=== PATIENT | male | born 1955 | race Hispanic/Latino ===

== ENCOUNTER → 2025-06-12 | Outpatient (CLI) | payer OTHER ==
[~2025-06-12] MED LIST: ALLO100T PO; CYCL-309 PO; GABA-1405 PO; HYDR-4060 PO; IBUP-2077 PO; LIDOCAINE PF 100MG/5ML (2%) SYRINGE 5ML ONE; MELA10TA37 PO
--- NOTE | 2025-06-12 13:40 | NUR ---
MBSS COMPLETED: (OUTPATIENT). No penetration/aspiration. RECOMMENDATIONS: Regular textured solids, thin liquids, whole pills. GI consult due to patient complaints of midesophageal pressure when eating solids. COMPENSATORY STRATEGIES: 1. Upright during PO intake 2. Alternate between solids/liquids NOTES: Patient complained of globus sensation and feeling like he is choking with solids. Patient states it occurs "only sometimes." He reports a history of diabetes and high blood pressure. DIAGNOSTIC FINDINGS: Patient presented with good oral seal over spoon and cup across all consistencies, timely A-P transit time, decreased base of tongue retraction and decreased pressure generation within the pharynx. Characteristics evident by vallecular and pyriform residue. Multiple swallows and alternation of bites and sips helped reduce symptom. RETAIL COORDINATOR reviewed results and recommendations with the patient and patient's daughter. Education on risks and consequences of aspiration. ST is not indicated at this time as patient appears to present within functional limits for swallowing abilities. All questions answered.
--- NOTE | 2025-06-17 20:15 | HMCIMG ---
Fluoroscopy is utilized for the procedure. The total fluoroscopy time is 003.9 min. The total dose area product is 351.98 mGy. The interpreting radiologist was not present during the procedure. /[place]
== END | disposition home or self-care (01) ==
LOC: RAH 13:23
PROVIDERS: ATTEND Internal Medicine
DX: K21.9 Gastro-esophageal reflux disease without esophagitis (principal); R13.10 Dysphagia, unspecified
CPT/HCPCS: 74230; 92611; J2003; J2704; J3490